=== PATIENT | female | born 1950 | race Caucasian/White ===

== ENCOUNTER 2020-12-31 15:46 | Inpatient (IN) ==
[2020-12-31] MEDS ORDERED: Melatonin 3 MG TABLET PO PRN (17:44)
[2020-12-31] MEDS ORDERED: D5% in Water 1,000 ML IVC PRN (17:49)
[2020-12-31] MEDS ORDERED: *HR* Dextrose 50 % in Water (Syg) 50 ML SYRINGE IVP PRN (17:49)
[2020-12-31] MEDS ORDERED: Dextrose Gel 15 GM/37.5 ML TUBE PO PRN ×2 (17:49)
[2020-12-31] MEDS: Famotidine 20 MG TABLET PO SCH (21:24)
[2020-12-31] MEDS: Gabapentin 300 MG CAPSULE PO SCH (21:24)
[2020-12-31] MEDS: Sucralfate 1 GM TABLET PO SCH (21:24)
[2020-12-31] MEDS: Latanoprost 2.5 ML BOTTLE BOTH EYES SCH (21:24)
[2020-12-31] MEDS: Insulin LISPRO 300 UNITS/3 ML VIAL SUBQ SCH (21:52)
[2021-01-01 05:21] LABS: Basophils % 0.3 %; Eosinophils # 0.2 K/mcL (0.0-0.6); Eosinophils % 3.1 %; Hematocrit 36.7 % (35.3-44.9); Hemoglobin 11.4 g/dL (11.5-15.4); Lymphocytes % 27.4 %; Mean Corpuscular HGB Conc 31.1 g/dL (31.6-35.5); Mean Corpuscular Hemoglobin 27.6 pg (28.0-33.3); Mean Corpuscular Volume 88.9 fL (83.0-100.0); Mean Platelet Volume 9.5 fL (9.4-12.4); Monocytes # 0.9 K/mcL (0.0-1.3); Monocytes % 12.7 %; Platelet Count 297 K/mcL (140-400); Red Blood Count 4.13 M/mcL (3.82-4.97); Red Cell Distribution Width 13.2 % (11.5-14.5); Segmented Neutrophils % 53.5 %; White Blood Count 7.4 K/mcL (4.3-11.1)
[2021-01-01 05:40] LABS: BUN/Creatinine Ratio 28 (6-26); Blood Urea Nitrogen 23 mg/dL (8-23); Calcium 8.8 mg/dL (8.6-10.3); Carbon Dioxide 40 mEq/L (23-29); Chloride 93 mEq/L (98-107); Glucose 170 mg/dL (70-105); Osmolality,Calculated 298 (280-300); Potassium 3.3 mEq/L (3.5-5.1); Sodium 140 mEq/L (136-145); eGFR For African Americans > 60 (> 60); eGFR For Non-African Americans > 60 (> 60)
[2021-01-01] MEDS: Gabapentin 300 MG CAPSULE PO SCH ×2 (09:11→21:53)
[2021-01-01] MEDS: Aspirin Enteric Coated 81 MG Tablet PO SCH (09:11)
[2021-01-01] MEDS: dexAMETHasone 4 MG TABLET PO SCH (09:11)
[2021-01-01] MEDS: Sucralfate 1 GM TABLET PO SCH ×2 (09:11→21:53)
[2021-01-01] MEDS: *HR* GlipiZIDE XL (24 HR) 10 MG TABLET PO SCH (09:12)
[2021-01-01] MEDS: Furosemide 40 MG TABLET PO SCH (09:12)
[2021-01-01] MEDS: Fenofibrate 54 MG TABLET PO SCH (09:12)
[2021-01-01] MEDS: Famotidine 20 MG TABLET PO SCH ×2 (09:12→21:54)
[2021-01-01] MEDS: Loratadine 10 MG TABLET PO SCH (09:12)
[2021-01-01] MEDS: Insulin LISPRO 300 UNITS/3 ML VIAL SUBQ SCH ×4 (09:13→22:02)
[2021-01-01] MEDS: Fluticasone Propionate Nasal 50 MCG/SPRAY BOTTLE NS SCH (09:34)
[2021-01-01] MEDS: *HR* Rivaroxaban 10 MG TABLET PO SCH (17:32)
[2021-01-01] MEDS: acetaZOLAMIDE 250 MG TABLET PO SCH (21:53)
[2021-01-01] MEDS: Latanoprost 2.5 ML BOTTLE BOTH EYES SCH (22:03)
[2021-01-02] MEDS: Insulin LISPRO 300 UNITS/3 ML VIAL SUBQ SCH ×4 (09:23→20:25)
[2021-01-02] MEDS: dexAMETHasone 4 MG TABLET PO SCH (09:37)
[2021-01-02] MEDS: Aspirin Enteric Coated 81 MG Tablet PO SCH (09:37)
[2021-01-02] MEDS: Furosemide 40 MG TABLET PO SCH (09:37)
[2021-01-02] MEDS: *HR* GlipiZIDE XL (24 HR) 10 MG TABLET PO SCH (09:38)
[2021-01-02] MEDS: Gabapentin 300 MG CAPSULE PO SCH ×2 (09:38→20:21)
[2021-01-02] MEDS: Fenofibrate 54 MG TABLET PO SCH (09:38)
[2021-01-02] MEDS: Loratadine 10 MG TABLET PO SCH (09:38)
[2021-01-02] MEDS: acetaZOLAMIDE 250 MG TABLET PO SCH ×2 (09:38→20:21)
[2021-01-02] MEDS: Sucralfate 1 GM TABLET PO SCH ×2 (09:39→20:22)
[2021-01-02] MEDS: Famotidine 20 MG TABLET PO SCH ×2 (09:39→20:21)
[2021-01-02] MEDS: Fluticasone Propionate Nasal 50 MCG/SPRAY BOTTLE NS SCH (09:44)
[2021-01-02] MEDS: *HR* Rivaroxaban 10 MG TABLET PO SCH (17:33)
[2021-01-02] MEDS: Latanoprost 2.5 ML BOTTLE BOTH EYES SCH (20:25)
[2021-01-03 07:06] LABS: Basophils % 0.3 %; Eosinophils # 0.2 K/mcL (0.0-0.6); Eosinophils % 3.1 %; Hematocrit 36.9 % (35.3-44.9); Hemoglobin 11.2 g/dL (11.5-15.4); Immature Granulocytes % 2.1 % (0-4); Lymphocytes # 1.9 K/mcL (0.6-4.6); Lymphocytes % 28.6 %; Mean Corpuscular HGB Conc 30.4 g/dL (31.6-35.5); Mean Corpuscular Hemoglobin 27.2 pg (28.0-33.3); Mean Corpuscular Volume 89.6 fL (83.0-100.0); Mean Platelet Volume 9.5 fL (9.4-12.4); Monocytes % 14.9 %; Neutrophils # 3.3 K/mcL (1.6-8.9); Platelet Count 332 K/mcL (140-400); Red Blood Count 4.12 M/mcL (3.82-4.97); Red Cell Distribution Width 13.4 % (11.5-14.5); White Blood Count 6.5 K/mcL (4.3-11.1)
[2021-01-03] MEDS: Gabapentin 300 MG CAPSULE PO SCH ×2 (07:46→23:14)
[2021-01-03] MEDS: dexAMETHasone 4 MG TABLET PO SCH (07:46)
[2021-01-03] MEDS: Aspirin Enteric Coated 81 MG Tablet PO SCH (07:46)
[2021-01-03] MEDS: Loratadine 10 MG TABLET PO SCH (07:46)
[2021-01-03] MEDS: Famotidine 20 MG TABLET PO SCH ×2 (07:46→23:13)
[2021-01-03] MEDS: acetaZOLAMIDE 250 MG TABLET PO SCH ×2 (07:47→23:13)
[2021-01-03] MEDS: Furosemide 40 MG TABLET PO SCH (07:47)
[2021-01-03] MEDS: Fenofibrate 54 MG TABLET PO SCH (07:47)
[2021-01-03] MEDS: Sucralfate 1 GM TABLET PO SCH ×2 (07:47→23:13)
[2021-01-03] MEDS: *HR* GlipiZIDE XL (24 HR) 10 MG TABLET PO SCH (07:47)
[2021-01-03] MEDS: Fluticasone Propionate Nasal 50 MCG/SPRAY BOTTLE NS SCH (07:48)
[2021-01-03] MEDS: Insulin LISPRO 300 UNITS/3 ML VIAL SUBQ SCH ×4 (07:48→22:35)
[2021-01-03 07:57] LABS: BUN/Creatinine Ratio 25 (6-26); Blood Urea Nitrogen 23 mg/dL (8-23); Calcium 8.6 mg/dL (8.6-10.3); Carbon Dioxide 34 mEq/L (23-29); Chloride 99 mEq/L (98-107); Glucose 89 mg/dL (70-105); Osmolality,Calculated 291 (280-300); Potassium 3.4 mEq/L (3.5-5.1); Sodium 139 mEq/L (136-145); eGFR For African Americans > 60 (> 60); eGFR For Non-African Americans > 60 (> 60)
[2021-01-03] MEDS: *HR* Rivaroxaban 10 MG TABLET PO SCH (17:52)
[2021-01-03] MEDS: Latanoprost 2.5 ML BOTTLE BOTH EYES SCH (23:15)
[2021-01-04 03:01] VITALS: O2SAT 99
[2021-01-04 07:46] VITALS: BP 133/74; PULSE 52; RESP 18; TEMP 97.7
[2021-01-04] MEDS: Sucralfate 1 GM TABLET PO SCH (10:11)
[2021-01-04] MEDS: Aspirin Enteric Coated 81 MG Tablet PO SCH (10:11)
[2021-01-04] MEDS: Gabapentin 300 MG CAPSULE PO SCH (10:11)
[2021-01-04] MEDS: Famotidine 20 MG TABLET PO SCH (10:11)
[2021-01-04] MEDS: dexAMETHasone 4 MG TABLET PO SCH (10:11)
[2021-01-04] MEDS: Fenofibrate 54 MG TABLET PO SCH (10:11)
[2021-01-04] MEDS: *HR* GlipiZIDE XL (24 HR) 10 MG TABLET PO SCH (10:12)
[2021-01-04] MEDS: Loratadine 10 MG TABLET PO SCH (10:12)
[2021-01-04] MEDS: Furosemide 40 MG TABLET PO SCH (10:12)
[2021-01-04] MEDS: Fluticasone Propionate Nasal 50 MCG/SPRAY BOTTLE NS SCH (10:13)
== END 2021-01-04 11:56 | disposition home health service (06) | DRG 177 ==
LOC: INPGRE 18:24
PROVIDERS: ADMIT Family Medicine; ATTEND Family Medicine